=== PATIENT | male | born 1960 | race Hispanic/Latino ===

== ENCOUNTER 2019-11-07 14:12 | Inpatient (IN) | payer BC, OTHER ==
[~2019-11-07] VITALS: Ht 172.7 cm; Wt 85.3 kg
[2019-11-07] MEDS ORDERED: GLUCOPHAGE1000 MG PO (14:43)
[2019-11-07] MEDS ORDERED: AMOXICILLIN500 MG PO ×2 (14:44→14:45)
[2019-11-07] MEDS ORDERED: BACTRIM DS TAB1 EACH PO (14:45)
--- NOTE | 2019-11-07 18:53 | NUR ---
1814: PT ARRIVED TO ROOM 122 WITH HIS DAUGHTER. THE PT IS ONLY PERUVIAN SPEAKING. ON ARRIVAL HE STATES HIS PAIN IS AN 8 WITH STANDING BUT THAT IT WENT AWAY WITH LAYING DOWN. THERE IS A NOTED LACERATION BETWEEN HIS 2-3 TOES ON THE RIGHT FOOT WITH WHAT SOUNDS IF IT MAY HAVE GLASS IN IT ACCORDING THE THE XR. PT ORIENTED TO THE ROOM AND CALL WHITE. VSS, SEE ASSESSMENT.
--- NOTE | 2019-11-07 20:03 | NUR ---
coop with assessment, legs elevated, on room air, ivf infusing, iv abx started. cbg 181, will get 3 unit insulin. sandwich ordered, family at bedside. fluids and call light at bedside
--- NOTE | 2019-11-07 21:01 | NUR ---
BOILER MECHANIC ROUNDING NOTE. PT RESTING IN BED TALKING ON CELL PHONE. WHITE BOARD UPATED. CALL LIGHT IN REACH.
--- NOTE | 2019-11-07 21:36 | NUR ---
Awakes easily, Leg elevated, redness and edema of R feet present. tender to touch,. Coop with assessment, ate a sandwich, no n/v. no c/o adverser eaction to IV abx. med teaching r/t meds given at this time, done,c ontinue to reinforce teaching
--- NOTE | 2019-11-08 01:00 | NUR ---
Resting, eyes closed, no distress, turns self in bed, legs elevated. IVF/abx infusing w/o problems. call light and fluidsa t bedside
--- NOTE | 2019-11-08 02:08 | NUR ---
awakens easily, laying on l side, legs elevated, no c/o pain. ivfi infusing, no c/o adverser eaction to abx. tolerataing liquids well, call light at bedside
--- NOTE | 2019-11-08 05:33 | NUR ---
PT HAS SLEPT THIS SHIFT, [place] SPEAKING ONLY. R FOOT BETWEEN 2-3RD TOES AREA EDEMA, TENDERNESS AREAS WATM TO TOUCH, ELEVATED. DAILY STANDING WEIGHT 84.5KG WEIGHT. HAS BEEN NPO SINCE MIDNIGHT. VOIDING LARGE AMOUNTS OF DARK YELLOW URINE. USES URINAL, UP TO BR X3 AT BEGINING OF SHIFT. NO C/O PAIN. HAS TOLERATED WELKING WELL, HOPPING LIKE GAIT . IVF INFUSING W/O PROBLEMS, HAS DENIES S/SX ADVERSER EACTION TO IV ABX. WRITTEN AND VERBAL INFORMATION R/T HYPO/HYPERGLYCEMIA GIVEN, QUESTIONS ANSWERED TO HIS SATISFACTION. INFORMATION R/T CELLULITIS WRITTEN GIVEN IN [place] AND EXPLAINED TO HIM IN [place]. REINFORCEMENT NEEDED, MED TEACHING GIVEN R/T MEDS PO /IVF/ABX IV GIVEN TO PT, STATED UNDERSTANDING, ON ROOM AIR, POSSIBLE PROCEDURE FOR I&D OF FOREGING OBJECT EXPLAINED PRE-OP/POST-OP EXPECTATIONS, EXPLAINED IN [place], STATED UNDERSTANDING
--- NOTE | 2019-11-08 05:40 | NUR ---
PATIENT RESTING IN BED, AWAKES FOR VITAL SIGNS. RN AT BEDSIDE. NO FURTHER NEEDS AT THIS TIME.
--- NOTE | 2019-11-08 08:31 | NUR ---
Assessment completed. Denies needs at this time. Daughter at bedside with patient. Medications administered. Educated about insulin and why keeping blood sugars is important for healing. Verbalizes understanding. Call light in reach, denies needs at this time. Bed rails up X2.
--- NOTE | 2019-11-08 09:24 | NUR ---
PATIENT IN BED RESTING WITH EYES CLOSED. VISITOR IN ROOM. CALL LIGHT IN REACH. NO FURTHER NEEDS AT THIS TIME.
--- NOTE | 2019-11-08 09:55 | NUR ---
MED REC COMPLETE
--- NOTE | 2019-11-08 10:08 | NUR ---
LYING IN BED ON LEFT SIDE, EYES CLOSED. DAUGHTER AT BEDSIDE, DENIES NEEDS. ALLOWED TO REST AT THIS TIME. CALL LIGHT IN REACH.
[2019-11-08] MEDS ORDERED: AMOX TR-K CLV1 EAC1 PO (10:10)
--- NOTE | 2019-11-08 11:52 | NUR ---
Insulin given. Denies needs at this time. Family member remains at bedside. Denies other needs at this time. Call light in reach. Bed rails up X2.
--- NOTE | 2019-11-08 13:45 | NUR ---
Dr. Browne in to assess patient. Wound assessed. Unable to retrieve foreign object, believes it to be old foreign body. Dressing applied, cultures collected and sent to lab.
--- NOTE | 2019-11-08 14:50 | NUR ---
ASSESSMENT COMPLETED. DRESSING TO RIGHT FOOT APPLIED BY DR. COBURN, NO OTHER CHANGES TO PREVIOUS AM ASSESSMENT. AIDE REPORTS NO URINE OUTPUT MEASURED, TOILET SEAT UP, PATIENT UP AD KIRSTEN IN ROOM, WILL ASK DAUGHTER ABOUT PATIENT URINE OUTPUT AND ENCOURAGE TO USE URINAL TO MEASURE OUTPUT.
--- NOTE | 2019-11-08 18:23 | NUR ---
CONTINUES ON IV ANTIBIOTICS. 2 IV SITES IN USE. REMAINS WITH IV FLUIDS INFUSING. DR. COBURN IN TODAY TO ASSESS RIGHT FOOT, PLACED DRESSING ON WOUND AND PLANS TO RETURN TOMORROW MORNING TO REASSESS SITE. GLUCOSE ELEVATED TODAY, INSULIN GIVEN TO CONTROL BLOOD GLUCOSE. RESTARTED 60 GM CARB DIABETIC DIET. DENIES PAIN THROUGHOUT DAY.
--- NOTE | 2019-11-08 18:35 | NUR ---
PATIENT IN BED RESTING. CALL LIGHT IN REACH. NO FURTHER NEEDS AT THIS TIME.
--- NOTE | 2019-11-08 20:39 | NUR ---
awakes easily, turns self in bed. IVF infusing, no c/o adverse reaction to abx. 2 IV sites patent. CBG 227, received 5 units Humalog Insulin SQ. R foot elevated with pillows, kerlix covered with Coban dressing, good cms, warm to touch
--- NOTE | 2019-11-08 22:11 | NUR ---
CALL LIGHT ANSWERED. 1 PA/SBA TO THE BATHROOM AND BACK TO BED. CHANGED DRAW SHEET AND GOWN. PATIENT HAD A BOWEL MOVEMENT. PATIENT IS BACK IN BED. PATIENT REFUSED TO USE THE WALKER.
--- NOTE | 2019-11-08 22:41 | NUR ---
AWAKES EASILY, IVF INFUSING, NO C/O PAIN. R LEG ELEVATED, DRESSING INTACT. CALL LIGHT AND FLUIDS AT BEDSIDE
--- NOTE | 2019-11-09 00:59 | NUR ---
Resting, no distress, on room air, resp even, unlabored. no s/sx hypo/hyperglycemia, ivf infusing, no furhter c/o itching or pain at IV site, Vancomycin rate decreaed,. uses urinal, voiding QS, tolerating fluids well
--- NOTE | 2019-11-09 02:16 | NUR ---
cOOP, AWAKES EASILY, NO C/O ADVERSER EACTION TO ABX. TOLERATING FLUIDS WELL, NO N/V. R FOOT DRESSING INTACT. ELEVATED, PT TURNES SELF IN BED. USING CALL LIGHT APPROPRIATELY. VOIDING LARGE AMOUNTS OF URINE
--- NOTE | 2019-11-09 02:25 | NUR ---
temp 100. room temp was at 76, down to 70 at this time, 2 blankets removed. IS given and retunr demonstration 10X done, did well up to 1750 on majority of try and appropriately demonstration. procedure explained, in Pakistani, alll questions answered to his satisfaction
--- NOTE | 2019-11-09 05:52 | NUR ---
PT AWAKES EASILY, NO C/O PAIN AT THIS TIME, HAD A FEVER SEAN;IER 100.0, ROOM WAS AT 76f, DECREAED TO 70, 3 BLANKETS REMOVED TOO. AFEBRILE AN HOUR AFTER, STILL AFEBRILE. ON ROOM AIR. IVF INFUSING W/O PROBLEMS. NO C/O ADVERSEREACTION TO IV ABX. VOIDING LARGE AMOUNTS OF YELLOW URINE. R FOOT DRESSING INTACT, ELEVATED WITH PILLOWS, GOOD CMS. HAD 2 SOFT FORMED BMS. TOLERATING DIET AND FLUIDS WELL, NO N.V, USES CALL LIGHT APPROPRIATELY [place] SPEAKING.
--- NOTE | 2019-11-09 06:09 | NUR ---
DR MONZON NOTIFIED OF TEMP SITUATION AND PT AFEBRILE NOW, NO NEW ORDERS, OK TO ROUND 0600 LABS AT 1030 AM WITH JORGE LUIS THROUGH
--- NOTE | 2019-11-09 07:15 | NUR ---
Recieved report from Demi Carrero RN. Patient resting on left side with eyes closed. No signs of pain noted at this time.
--- NOTE | 2019-11-09 08:33 | NUR ---
Orders from Dr. Browne to make appointment with him in clinic this week, leave dressing in place until appointment, keep dressing dry and place postop boot to right foot.
--- NOTE | 2019-11-09 08:59 | NUR ---
Assessment completed. Dr. Browne in room to assess right foot and change dressing. Patient tolerates without complaint of pain. AM medication administered. Breakfast provided. Call light in reach, bed rails up X2.
--- NOTE | 2019-11-09 09:10 | NUR ---
Jordana, nurse joiners supervisor, notified of need for post op shoe.
--- NOTE | 2019-11-09 10:29 | NUR ---
PATIENT UP TO BATHROOM, SBA. PATIENT DOING AM CARE AND ORAL CARE AT SINK. DAUGHTER IN ROOM. CALL LIGHT IN REACH. NO FURTHER NEEDS AT THIS TIME.
== END 2019-11-09 13:55 | disposition home or self-care (01) | DRG 580 ==
LOC: ED 14:12 → MS 17:22
PROVIDERS: ADMIT Internal Medicine
PROC: 0J9Q0ZZ Drainage of Right Foot Subcutaneous Tissue and Fascia, Open Approach (ICD-10-PCS; principal; 2019-11-08)
DX: L03.115 Cellulitis of right lower limb (principal); L02.611 Cutaneous abscess of right foot; M79.5 Residual foreign body in soft tissue; E11.9 Type 2 diabetes mellitus without complications; Z20.828 Contact with and (suspected) exposure to other viral communicable diseases; Z87.891 Personal history of nicotine dependence; Z79.84 Long term (current) use of oral hypoglycemic drugs
CPT/HCPCS: 36415; 73630; 80048; 80053; 80202; 83036; 83605; 83735; 84100; 85025; 85651; 86140; 96361; 96374; 97161; 99285-25; J0692; J1650; J1815; J3370; J3480; J7030; J7040; J7060; J7120; U0002

== ENCOUNTER 2020-09-13 11:05 | Emergency (ER) | payer OTHER, BC ==
[~2020-09-13] VITALS: Ht 172.7 cm; Wt 85.3 kg
[~2020-09-13 11:05] MED LIST: AMOX TR-K CLV1 EAC1 PO; AMOXICILLIN500 MG PO; BACTRIM DS TAB1 EACH PO; GLUCOPHAGE1000 MG PO
[2020-09-13] MEDS ORDERED: LANTUS SOL100 UNIT/1 SUB-Q (14:25)
== END 2020-09-13 17:37 | disposition home or self-care (01) ==
LOC: ED 11:05
DX: S29.012A Strain of muscle and tendon of back wall of thorax, initial encounter (principal); V49.9XXA Car occupant (driver) (passenger) injured in unspecified traffic accident, initial encounter; E11.9 Type 2 diabetes mellitus without complications; Z87.891 Personal history of nicotine dependence; Z79.4 Long term (current) use of insulin
CPT/HCPCS: 71046; 99284-25; A9270

== ENCOUNTER 2021-11-02 11:33 | Inpatient (IN) | payer BC ==
[~2021-11-02] VITALS: Ht 172.7 cm; Wt 87.0 kg
[~2021-11-02 11:33] MED LIST changes: +CELECOXIB200 MG PO; +CYCLOBENZAPRINE10 MG PO; +HYDROCODON-ACE1 EA10 PO; +LANTUS SOL100 UNIT/1; +LANTUS SOL100 UNIT/1 SUB-Q; +LIPITOR20 MG GT; +METFORMIN HCL1000 MG PO; +METFORMIN HCL500 MG PO; +PRISTIQ ER25 MG PO; +ZESTRIL20 MG
[2021-11-02] MEDS ORDERED: AMOX TR-K CLV1 EAC1 PO (12:03)
[2021-11-02] MEDS ORDERED: TAMSULOSIN HCL0.4 MG PO (12:03)
[2021-11-02] MEDS ORDERED: SEMGLEE (Y100 UNIT/2 SUB-Q (17:08)
--- NOTE | 2021-11-10 07:31 | OR ---
[facility] [address], [place] [address] Signed DATE OF OPERATION: 11/08/2021 SURGEON: Shai Amaya DPM PREOPERATIVE DIAGNOSIS: Diabetic foot ulcer with infection, left foot. POSTOPERATIVE DIAGNOSIS: Diabetic foot ulcer with infection, left foot. ANESTHESIA: IV general with local block, left foot. INFLATED PAD BUFFER: Clint Ramos CRNA SPECIMEN TO PATHOLOGY: None. PROCEDURE: Debridement of ulcer and infection, left foot. DESCRIPTION OF PROCEDURE: The patient was brought to the operating room and placed on the table in the supine position. Anesthesia Department administered IV sedation after which a local block was given to the left foot using a total of 12 mL of 1:1 mixture of 2% lidocaine plain and 0.5% ropivacaine plain. The left leg and foot were then prepped and draped in the usual sterile manner and an Esmarch was used for hemostasis. Attention was initially directed to the left forefoot. An ulcer site is noted to the central area of the dorsal left forefoot. Another ulcer site is present to the web space between 4th and 5th toes and these sites communicate. Therefore, an incision was started near the base of 4th digit laterally connecting distally with the interdigital ulcer and extending in a linear direction longitudinally about 6-8 cm proximal. The incision was initially full-thickness through the dermis and into subcutaneous tissue reflecting soft tissues medially and laterally exposing necrotic tissue within this site. Necrotic tissue appeared to extend slightly more proximal, particularly medial to the incision and extended down to the plantar aspect of the foot between 4th and 5th toes, but did not appear to extend across the plantar aspect of the foot from this site. Dorsally, this did extend across the base of 3rd and 4th toes over to the area of 2nd Electronically Signed By: SHAI AMAYA DPM 11/10/21 0731 PATIENT NAME: KATIE MONCADA OPERATIVE REPORT DATE OF : 60 REPORT #: [id number] PHYSICIAN: SHAI AMAYA DPM PCP: JOHN LOPEZ MD REPORT IS CONFIDENTIAL AND NOT TO BE RELEASED WITHOUT AUTHORIZATION [facility] [address], [place] [address] Signed digit as well and these sites were all debrided, periodically irrigating the surgical site with Irrisept antimicrobial irrigation. Once the surgical site was adequately debrided, antibiotic beads placed into the surgical site and distributed throughout the wound site. The dorsal ulcer site was excised and closed with 4-0 nylon monofilament suture. The incision site for the main debridement was closed across the dorsum of the foot using 4-0 nylon monofilament suture leaving the ulcer area between 4th and 5th toes open and this site was packed with 1/4 inch plain Nu Gauze packing. Dressings were then applied consisting of Adaptic, Betadine-soaked gauze, dry gauze, Flexicon, ABD pad, and Coban for mild compression. INTRAOPERATIVE COMPLICATIONS: None. ESTIMATED BLOOD LOSS: Less than 20 mL. Shai Amaya DPM DFB/MODL /[id number] Copies: ~ Electronically Signed By: SHAI AMAYA DPM 11/10/21 0731 PATIENT NAME: KATIE MONCADA OPERATIVE REPORT DATE OF : 60 REPORT #: [id number] PHYSICIAN: SHAI AMAYA DPM PCP: JOHN LOPEZ MD REPORT IS CONFIDENTIAL AND NOT TO BE RELEASED WITHOUT AUTHORIZATION
[2021-11-10] MEDS ORDERED: SEMGLEE (Y100 UNIT/2 SUB-Q (13:07)
[2021-11-10] MEDS ORDERED: AMOX TR-K CLV1 EAC1 PO (13:08)
== END 2021-11-10 14:00 | disposition home or self-care (01) | DRG 623 ==
LOC: ED 11:33 → MS 13:24
PROVIDERS: Podiatrist Foot Surgery; ADMIT Internal Medicine; ATTEND Internal Medicine
PROC: 0JBR0ZZ Excision of Left Foot Subcutaneous Tissue and Fascia, Open Approach (ICD-10-PCS; principal; 2021-11-08 07:30)
DX: E11.628 Type 2 diabetes mellitus with other skin complications (principal); L03.116 Cellulitis of left lower limb; Z20.822 Contact with and (suspected) exposure to COVID-19; E11.621 Type 2 diabetes mellitus with foot ulcer; E11.65 Type 2 diabetes mellitus with hyperglycemia; B95.4 Other streptococcus as the cause of diseases classified elsewhere; B96.4 Proteus (mirabilis) (morganii) as the cause of diseases classified elsewhere; N40.0 Benign prostatic hyperplasia without lower urinary tract symptoms; L97.529 Non-pressure chronic ulcer of other part of left foot with unspecified severity; Z91.14 Patient's other noncompliance with medication regimen; Z87.891 Personal history of nicotine dependence; Z79.1 Long term (current) use of non-steroidal anti-inflammatories (NSAID)
CPT/HCPCS: 36415; 73630; 80048; 80053; 80202; 83036; 83735; 85025; 86140; 87040; 87070; 87075; 87186; 87205; 87502; A9270; C1713; C9803; J0295; J0692; J1100; J1650; J1815; J1885; J2250; J2405; J2704; J2765; J2795; J3010; J3370; J3475; J7030; J7060; J7121; U0003

== ENCOUNTER 2022-08-13 16:27 | Emergency (ER) | payer BC ==
[~2022-08-13] VITALS: Ht 172.7 cm; Wt 84.1 kg
[~2022-08-13 16:27] MED LIST changes: +SEMGLEE (Y100 UNIT/2 SUB-Q; +TAMSULOSIN HCL0.4 MG PO
[2022-08-13] MEDS ORDERED: ATORVASTATIN CA40 MG PO (16:38)
[2022-08-13] MEDS ORDERED: AMOX TR-K CLV1 EAC1 PO (18:19)
== END 2022-08-13 18:29 | disposition home or self-care (01) ==
LOC: ED 16:27
DX: L03.116 Cellulitis of left lower limb (principal); E11.65 Type 2 diabetes mellitus with hyperglycemia; Z87.891 Personal history of nicotine dependence; Z79.4 Long term (current) use of insulin; Z79.899 Other long term (current) drug therapy; Z79.84 Long term (current) use of oral hypoglycemic drugs
CPT/HCPCS: 36415; 73630; 80053; 85025; 96365; 99283-25; J0295

== ENCOUNTER 2023-03-05 08:45 | Day surgery (SDC) | payer OTHER ==
[2023-02-27 10:56] VITALS: BP 139/84
[~2023-03-05] VITALS: Ht 172.7 cm; Wt 85.0 kg
[~2023-03-05 08:45] MED LIST changes: +ATORVASTATIN CA40 MG PO
[2023-03-05 08:59] VITALS: BP 167/89
--- NOTE | 2023-03-05 09:57 | NUR ---
PT RESTING IN BED. PT UPDATED ON PLAN OF CARE AND ESTIMATE OF WAIT TIMES. PT AGREEABLE WITH THIS. PT HAS NO REQUESTS AT THIS TIME. CALL LIGHT WITH PT.
[2023-03-05] MEDS ORDERED: HYDROCODON-ACE1 EA10 PO (11:01)
[2023-03-05] MEDS ORDERED: CELECOXIB200 MG PO (11:01)
--- NOTE | 2023-03-05 11:20 | NUR ---
03/05/23 1120 Demetra Woodson 1105 PT TO PACU AWAKE AND TALKING O2 VIA MASK ON 6L
[2023-03-05 11:39] VITALS: BP 149/93
--- NOTE | 2023-03-05 12:36 | NUR ---
1135- PT BACK TO DAY SURGERY ROOM #4 ALERT AND ORIENTED. PT REPORTS NO PAIN OR NAUSEA. PT PROVIDED ICE WATER AND COFFEE PER HIS REQUEST. PT HAS NO FURTHER REQUESTS AT THIS TIME. PT'S LEFT HAND ELEVATED ON TWO PILLOWS AND AN ICE PACK APPLIED TO PT'S LEFT HAND WITH BARRIER.
[2023-03-05 12:43] VITALS: BP 168/92
--- NOTE | 2023-03-05 12:50 | NUR ---
PT'S DAUGHTER CALLED AND PROVIDED AN UPDATE. PT ABLE TO AMBULATE TO THE RESTROOM AND BACK TO BED. PT DENIES ANY DIZZINESS, NAUSEA, OR PAIN. PT STATES HE IS READY TO GO HOME. PT DRESSING HIMSELF. TOLERATING WELL.
--- NOTE | 2023-03-05 12:57 | OR ---
[facility] [address] [place], [place] [address] Signed DATE OF OPERATION: 03/05/2023 SURGEON: Hi Woodson MD PREOPERATIVE DIAGNOSIS: Partial amputation small finger and amputation ring finger tip POSTOPERATIVE DIAGNOSIS: Partial amputation small finger and amputation ring finger tip PROCEDURE PERFORMED: Debridement of granulomas, small and ring finger. SAP BASIS ARCHITECT: Dejah Mcleod PA-C. ANESTHESIA: Sedation with finger block. BLOOD LOSS: Minimal. TOURNIQUET TIME: Zero. BRIEF HISTORY: Katie is a 62-year-old gentleman, who had an amputation of his ring finger and partial amputation of his small finger that was not healing well. There were multiple sutures placed in the ER that we were unable to retrieve and the suture abscesses were there. Fingers both had significant granulomatous tissue exuberantly growing from the end. We elected then to bring to the operating room and debride or partially amputate the small finger as necessary. Risks, benefits, and alternatives were discussed with him and he elected to proceed. DESCRIPTION OF PROCEDURE: Once consent was obtained, he was taken to the operating room. After adequate anesthesia, he was placed on the operating room table. All downside pressure points were well padded. The arm was prepped and draped in a standard sterile fashion. Prior dressing was removed prior to this. The granulomatous tissue was then removed sharply using knife and rongeurs. There were four sutures in the small finger, two sutures in Electronically Signed By: HI WOODSON MD 03/05/23 1257 PATIENT NAME: KATIE MONCADA OPERATIVE REPORT DATE OF : 60 REPORT #: [id number] PHYSICIAN: HI WOODSON MD PCP: OTHER PCP REPORT IS CONFIDENTIAL AND NOT TO BE RELEASED WITHOUT AUTHORIZATION [facility] [address] [place] [id number] Signed the ring finger that were moved as the scab was removed. Underneath this, there was good healing flap on the small finger. There was no need to shorten the finger or revise the amputation. We then sharply debrided down to good bleeding healthy tissue on both fingers. The bleeders on the small finger were cauterized as there were couple small vessels. Once this was accomplished, we elected to treat it with our normal Tegaderm finger dressing for amputations. The wounds were then dried and the Tegaderm was applied. He was then awakened, taken to the recovery room in satisfactory condition. All sponge, needle, and instrument counts were correct. Hi Woodson MD BA/BENJAL /[id number] Copies: ~ Electronically Signed By: HI WOODSON MD 03/05/23 1257 PATIENT NAME: KATIE MONCADA OPERATIVE REPORT DATE OF : 60 REPORT #: [id number] PHYSICIAN: HI WOODSON MD PCP: OTHER PCP REPORT IS CONFIDENTIAL AND NOT TO BE RELEASED WITHOUT AUTHORIZATION
[2023-03-05 13:26] VITALS: BP 168/93
--- NOTE | 2023-03-05 13:27 | NUR ---
INTO PT'S ROOM TO PROVIDE DC INSTRUCTIONS. WAITING FOR PT'S DAUGHTER TO ARRIVE TO PROVIDE DC INSTRUCTIONS TO HER WELL. PT REPORTS NO DIZZINESS, NAUSEA, OR PAIN.
--- NOTE | 2023-03-05 13:52 | NUR ---
1727- PT'S DAUGHTER INTO THE ROOM. DC INSTRUCTIONS PROVIDED TO BOTH PT AND PT'S DAUGHTER. ALL QUESTIONS ANSWERED. ICE PACK WITH PT ON DC. UPDATED THAT THE PRESCRIPTIONS HAVE BEEN FAXED TO [facility] IN [place].
== END 2023-03-05 13:42 | disposition home or self-care (01) ==
LOC: DS 08:45
PROVIDERS: ATTEND Specialist
PROC: 0JDK0ZZ Extraction of Left Hand Subcutaneous Tissue and Fascia, Open Approach (ICD-10-PCS; principal; 2023-03-05 10:45)
DX: S62.607G Fracture of unspecified phalanx of left little finger, subsequent encounter for fracture with delayed healing (principal); S62.605G Fracture of unspecified phalanx of left ring finger, subsequent encounter for fracture with delayed healing; E11.9 Type 2 diabetes mellitus without complications; E78.00 Pure hypercholesterolemia, unspecified; Z79.84 Long term (current) use of oral hypoglycemic drugs; X58.XXXD Exposure to other specified factors, subsequent encounter
CPT/HCPCS: 01810; J0690; J1100; J1885; J2001; J2250; J2405; J2704; J2765; J2795; J3010; J7121